=== PATIENT | female | born 1945 | race Caucasian/White ===

== ENCOUNTER 2017-05-30 23:14 | Outpatient (CLI) | payer MEDICARE | END 2017-05-30 23:15 | disposition home or self-care (01) | LOC: NAV LABSP 23:14 | PROVIDERS: ATTEND Family Medicine | DX: A04.7 Enterocolitis due to Clostridium difficile (principal) | CPT/HCPCS: 87324; 87449 ==

== ENCOUNTER 2017-06-22 07:59 | Outpatient (CLI) | payer MEDICARE ==
[2017-06-22 09:00] LABS: #Basophils 0.1 thou/uL (0.0-0.2); #Eosinphils 0.2 thou/uL (0.0-0.7); #Lymphocytes 1.9 thou/uL (1.20-3.40); #Monocytes 0.6 thou/uL (0.11-0.59); #Neutrophils 3.7 thou/uL (1.40-6.50); %Basophils 1.1 % (0.0-1.0); %Lymphocytes 29.4 % (21.0-51.0); %Monocytes 8.9 % (0.0-10.0); %Neutrophils 57.5 % (42.0-75.0); Hemoglobin 9.1 g/dL (12.0-16.0); Mean Corpuscular HGB CONC 32.9 g/dL (32.0-36.0); Mean Corpuscular Hemoglobin 28.9 pg (27.0-31.0); Mean Corpuscular Volume 87.8 fl (81.0-99.0); Mean Platelet Volume 5.1 fL (7.4-10.4); Platelet Count 292 thou/uL (130-400); RBC Distribution Width 13.7 % (11.5-14.5); Red Blood Cell (RBC) Count 3.14 mill/uL (4.20-5.40); White Blood Cell (WBC) Count 6.4 thou/uL (4.8-10.8)
== END 2017-06-22 08:00 | disposition home or self-care (01) ==
LOC: NAV LABSP 07:59
PROVIDERS: ATTEND Family Medicine
DX: E78.5 Hyperlipidemia, unspecified (principal); J44.9 Chronic obstructive pulmonary disease, unspecified; A04.7 Enterocolitis due to Clostridium difficile; E11.9 Type 2 diabetes mellitus without complications; G40.89 Other seizures; I82.90 Acute embolism and thrombosis of unspecified vein
CPT/HCPCS: 36415; 85025

== ENCOUNTER 2017-06-29 07:12 | Outpatient (CLI) | payer MEDICARE | END 2017-06-29 07:13 | disposition home or self-care (01) | LOC: NAV LABSP 07:12 | PROVIDERS: ATTEND Family Medicine | DX: I10 Essential (primary) hypertension (principal) | CPT/HCPCS: 87324; 87449 ==

== ENCOUNTER 2017-07-15 15:45 | Outpatient (CLI) | payer MEDICARE | END 2017-07-15 15:46 | disposition home or self-care (01) | LOC: NAV LABSP 15:45 | PROVIDERS: ATTEND Family Medicine | DX: E11.9 Type 2 diabetes mellitus without complications (principal); I10 Essential (primary) hypertension; A04.7 Enterocolitis due to Clostridium difficile | CPT/HCPCS: 87324; 87449 ==

== ENCOUNTER 2017-08-23 09:02 | Outpatient (CLI) | payer MEDICARE ==
[~2017-08-23 09:02] MED LIST: Iodixanol 320 MG/ML (100 ML BOT) ONE
--- NOTE | 2017-08-23 12:04 | CT ---
CT ANGIOGRAM OF THE HEAD WITH AND WITHOUT CONTRAST: Date: 08-23-17 History: 72-year-old female. History of intracranial aneurysm, status post coiling in February 2017. Comparison: Noncontrast CT of 05-17-17. Technique: Standard noncontrast CT of brain performed. Next, IV contrast bolus injected. Thin slice CT performed through brain, excluding the vertex. Coronal and sagittal 3D MIP reconstructions. FINDINGS: There is moderate dilation of the lateral and third ventricles. Mild to moderate dilation of the fou rth ventricle. This is unchanged since the previous CT. There are periventricular hypodensities abut ting the bilateral frontal horns. Although this could represent chronic ischemic white matter change s, there is a possibility that this could represent transependymal migration of CSF. The ventricular dilation is out of proportion to the brain atrophy. Again noted is the aneurysm coil abutting the left carotid terminus. The aneurysm coil causes streak artifact obscuring adjacent blood vessels, especially the A1 segment of the left anterior cerebral artery and the proximal portion of the A2 segment of the left anterior cerebral artery. It obscures the junction between the left and right A2 segments such that it is not possible to determine whethe r or not there is an anterior communicating artery. In fact, it is possible that this could be a coi l within a leftward pointing anterior communicating artery aneurysm. No contrast material is visuali zed within any aneurysm lumen, although the adjacent streak artifact would obscure any small residua l patent lumen other than that of a giant aneurysm. No aneurysm is visualized in the rest of the ant erior circulation or posterior circulation. No high grade stenosis or occlusion. Previously demonstrated moderate sized wedge shaped region of cytotoxic edema in the right parietal lobe has evolved into encephalomalacia and gliosis. The calvarium is intact. There is a small patchy of encephalomalacia and gliosis in the left parasagittal frontal lobe anteri samaria, superior to the level of the lateral ventricles. This was present previously on 05-17-17. IMPRESSION: 1. Status post coiling of anterior circulation aneurysm. 2. No evidence of any giant aneurysm. 3. 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 4. Ventriculomegaly, out of proportion to the brain parenchymal volume loss. There is a possibility that this could represent obstructive hydrocephalus, such as normal pressure hydrocephalus. This has not changed. 5. Small old infarction in the left frontal lobe, in the left anterior cerebral artery territory. POS: [facility]
== END 2017-08-23 09:03 | disposition home or self-care (01) ==
LOC: NAV CT 09:02
PROVIDERS: ATTEND Neurological Surgery
DX: I67.1 Cerebral aneurysm, nonruptured (principal); Q04.8 Other specified congenital malformations of brain; Z86.79 Personal history of other diseases of the circulatory system; Z86.73 Personal history of transient ischemic attack (TIA), and cerebral infarction without residual deficits
CPT/HCPCS: 70496; Q9967